=== PATIENT | male | born 1955 | race Caucasian/White ===

== ENCOUNTER 2023-07-23 11:49 | Emergency (ER) | payer MEDICARE, OTHER, SELFPAY ==
[2023-07-23 12:11] LABS: Urine Albumin 2+ (Neg - Trace); Urine Bilirubin 1+ (Negative); Urine Character Slightly Cloudy (Clear); Urine Color Brown; Urine Glucose Negative (Negative); Urine Ketone Trace (Negative); Urine Leukocyte Trace (Negative); Urine Nitrite Positive (Negative); Urine Occult Blood 4+ (Negative); Urine Urobilinogen 1+ (Neg - 1+)
[2023-07-23 12:15] LABS: % Basophils 0.4 % (0-2); % Eosinophils 1.5 % (0-6); % Immature Granulocytes 0.3 % (0-0.5); % Lymphocytes 16.3 % (20.5-51.1); % Monocytes 8.6 % (1.7-9.3); % Neutrophils 72.9 % (42.2-75.2); Absolute Eosinophils 0.1 10^3/uL (0-0.7); Absolute Lymphocytes 1.2 10^3/uL (1.2-3.4); Absolute Monocytes 0.7 10^3/uL (0.1-0.6); Absolute Neutrophils 5.5 10^3/uL (1.4-6.5); Hematocrit 43.9 % (39.0-52.0); Hemoglobin 14.2 g/dL (13.0-18.0); Mean Corp Hgb Conc. 32.3 g/dL (33.0-37.0); Mean Corpuscular Volume 92.8 fL (80.0-94.0); Mean Platelet Volume 10.3 fL (7.4-10.4); Nucleated Red Blood Cells % 0 % (-); Platelet Count 206 10^3/uL (130-400); Red Blood Cell Count 4.73 10^6/uL (4.70-6.10); Red Cell Dist. Width 12.3 % (11.5-14.5); White Blood Cell Count 7.6 10^3/uL (4.8-10.8)
[2023-07-23 12:40] LABS: ALT (SGPT) 44 U/L (0-50); AST (SGOT) 40 U/L (17-59); Albumin 4.2 g/dl (3.5-5.0); Alkaline Phosphatase 97 U/L (38-126); Blood Urea Nitrogen 13 mg/dl (9-20); Calcium 9.4 mg/dl (8.4-10.2); Carbon Dioxide 20 mmol/L (22-30); Chloride 111 mmol/L (98-107); Glucose 109 mg/dl (70-99); Potassium 4.2 mmol/L (3.5-5.1); Sodium 141 mmol/L (135-145); Total Bilirubin 1.1 mg/dl (0.2-1.3); Total Protein 6.7 g/dl (6.3-8.2); eGFR > 60.00
[2023-07-23 12:46] LABS: Urine Squamous Cell 0-2 /LPF (Few)
[2023-07-23 12:47] LABS: Urine Bacteria Many (Negative); Urine Red Blood Cell >100 /HPF (0-2)
--- NOTE | 2023-07-23 12:47 | ED.GENMED ---
History of Present Illness
General
Chief Complaint: Flank Pain
Source: patient
Exam Limitations: none
Time Seen by Provider: 07/23/23 12:23
Nursing documentation reviewed up to this point in time: agreed with
Travel History
Have you had any contact with someone who has COVID-19?: No
Do you have any symptoms of coronavirus? Fever > 100 degrees, chills, cough, shortness of breath, sore throat, loss of taste or smell, muscle aches, or headache?: No
History of Present Illness
History of Present Illness:
Patient is 67-year-old male with history of kidney stones presenting to the emergency department for evaluation of acute onset left flank pain. Symptoms initially started yesterday afternoon. Patient describes a sharp, relatively constant pain in
his left flank radiating down to his left groin. Patient reports onset of nausea and dry heaving earlier today due to pain. No associated fever, chills, chest pain, shortness of breath, or urinary symptoms. Patient states that the symptoms feel
exactly similar to kidney stones that he has had in the past.
Last kidney stone was many years ago. He has required surgical intervention for 1 kidney stone in the past
Patient does live in [place] but is up in [place] visiting his son.
Review of Systems
Review of Systems
Allergies reviewed?: Yes
All Other Systems: ROS reviewed and negative except as documented in HPI and ROS
Phy Exam
Physical Exam
Physical Exam:
Vitals: Patient's vital signs are stable. Afebrile
General: Patient is in moderate distress due to pain, no acute distress. Nontoxic-appearing
Skin: Warm and dry, no rashes or lesions
Head: Normocephalic, atraumatic
Eyes: Sclera nonicteric. EOMs intact. No nystagmus.
Throat: Protecting airway
Neck: Normal ROM, no cervical spine tenderness, no meningismus. Trachea midline
Cardiac: Regular rate and rhythm, no murmurs.
Pulm: Lungs clear bilaterally. Normal respiratory effort, no wheezes, rales, rhonchi heard on exam.
Abdomen: Abdomen soft. No abdominal tenderness without rebound tenderness or guard. Mild left CVA tenderness
Extremities: No evidence of cyanosis or edema. Good distal pulses
Neuro: AAOx3. CN II-XII intact. No focal neurologic deficits.
Psychiatric: Normal affect.
Course
Orders/Labs/Results
Orders:
Orders
07/23/23 12:01
Complete Blood Count/With Diff Urgent
Comprehensive Metabolic Panel Urgent
Urinalysis Reflex To Culture Urgent
Date Specimen was Collected: 07/23/23
Time Specimen was Collected: 11:57
Urine Microscopic Reflex Cult Urgent
Urine Culture Urgent
TO Source: U
Specimen Description:
Date Specimen was Collected: 07/23/23
Time Specimen was Collected: 11:57
07/23/23 12:39
0.9% Sodium Chloride 1000 ml [Nss] 1,000 ml IV BOLUS
Ketorolac [Toradol] 15 mg IV NOW STA
Morphine Sulfate 4 mg IV NOW STA
Ondansetron Injectable [Zofran] 4 mg IV NOW STA
07/23/23 12:40
CT Abd/pel Without Iv Or Oral Urgent
Comment:
Reason For Exam: left flank pain, hx kidney stones
07/23/23 14:35
Cephalexin Monohydrate [Keflex] 500 mg PO NOW STA
Abnormal Lab Results
07/23/23
12:01
MCHC 32.3 L g/dL
(33.0-37.0)
Absolute Monos (auto) 0.7 H 10^3/uL
(0.1-0.6)
Lymphocytes % 16.3 L %
(20.5-51.1)
Chloride 111 H mmol/L
(98-107)
Carbon Dioxide 20 L mmol/L
(22-30)
Glucose 109 H mg/dl
(70-99)
Urine Ketones Trace A
(Negative)
Ur Occult Blood Reflex 4+ A
(Negative)
Urine Nitrite (Reflex) Positive A
(Negative)
Urine Bilirubin 1+ A
(Negative)
Leukocyte Esterase Rfl Trace A
(Negative)
Urine RBC >100 A /HPF
(0-2)
Urine Bacteria (Reflex) Many A
(Negative)
Urine Albumin (Reflex) 2+ A
(Neg - Trace)
07/23/23 12:01
07/23/23 12:01
Vital Signs
Initial and Last Documented VS:
Initial Vital Signs
Temp Pulse Resp Pulse Ox
98.4 F 57 18 97
07/23/23 11:54 07/23/23 11:54 07/23/23 11:54 07/23/23 11:54
Last Documented Vital Signs
Temp Pulse Resp BP Pulse Ox
98.4 F 66 18 142/65 97
07/23/23 11:54 07/23/23 14:34 07/23/23 11:54 07/23/23 14:34 07/23/23 14:34
MDM/Problems Addressed
Differential Diagnosis Includes:
Not limited to: Kidney stone, pyelonephritis, UTI, diverticulitis
MDM/Problems Addressed:
67-year-old male presenting with acute onset left flank pain starting yesterday afternoon and worsening. Patient with past history of kidney stones stating this feels exactly the same. No fever, chills, abdominal pain. Vital signs stable. Exam
as above. Patient is nontoxic-appearing, although moderate uncomfortable due to pain. Lungs clear bilaterally. Heart regular rate and rhythm. Abdomen soft and nontender. Very mild left-sided CVA tenderness. No evidence of rashes or bruising.
History and exam consistent with likely kidney stone. Labs obtained in triage show signs of mild dehydration, otherwise no significant abnormalities. No evidence of renal insufficiency. White count normal. Urinalysis with many RBCs, few WBCs and
positive for nitrite very few squamous cells seen in urine suggesting unlikely to be contamination. Urine culture will be sent�although somewhat concerning for possible UTI. Will check CT abdomen/pelvis. Will give IVF, Zofran, morphine, Toradol,
and reassess.
Into reassess patient at bedside. Patient much more comfortable and states pain is significantly decreased following morphine.CT pending.
CT shows mild left hydronephrosis with a few 3 to 4 mm stones within the left bladder near the UVJ. No evidence of obstructing stone at this time. Patient does appear much more comfortable�I feel he is fit for trial of outpatient stone passage.
Given concern for possible UTI�will start patient on course of Keflex. First dose given in emergency department today. Will discharge patient with Flomax, pain management, as well. Instructions to strain urine and follow-up with urology has been
discussed with patient. Patient comfortable with plan. All questions answered.
Chronic conditions affecting care:
N/A
Acute Exacerbation and/or Progression of Chronic Illness:
N/A
*Radiology
Radiology exam reviewed: preliminary read by ED provider and radiology read reviewed
*Pulse Oximetry
Patient hypoxic: no
*EKG
Interpreted by ED Provider?: NA
*Pickling Solution Maker Interpretation
Rate: Pickling Solution Maker- N/A
*Critical Care Note
Total Time (30-74mins, 75-104mins- exclusive of procedures): Not Applicable
ED Attending Note
-
Portions of this chart may have been created with voice recognition software.� Occasional wrong word or��sound alike� substitutions may have occurred due to the inherent limitations of voice recognition software.
Discharge Plan
Departure
Patient Disposition: Home (Routine Discharge)
Date of Disposition: 07/23/23
Time of Disposition: 14:27
Patient with high blood pressure during this ER visit?: Yes
Condition: Good
Covid-19: Not Applicable
Discharge Problem:
Bladder stones
Instructions: Kidney Stones (DC), How to Strain Your Urine, BLOOD PRESSURE
Prescriptions:
New
tamsulosin [Flomax] 0.4 mg capsule
0.4 mg PO DAILY Qty: 14 0RF
cephalexin 500 mg capsule
500 mg PO QID 7 Days Qty: 28 0RF
oxycodone 5 mg tablet
5 mg PO Q8H PRN (Reason: Pain) Qty: 7 0RF
Referrals:
Antonio Isaac MD [Active] - As needed
NONE,* [Family Provider] -
Activity Restrictions/Additional Instructions:
RETURN TO THE EMERGENCY DEPARTMENT WITH ANY FEVERS, CHILLS, INTRACTABLE PAIN, SEVERE ABDOMINAL PAIN, INTRACTABLE NAUSEA/VOMITING, WORSENING IN CURRENT SYMPTOMS, OR ANY OTHER CONCERNS
-A few prescriptions have been sent to your pharmacy. You should take the antibiotic 4 times a day for the next week. You should take the tamsulosin daily for the next 2 weeks or until you pass stone. For pain management you should take ibuprofen
400 mg every 6-8 hours. A prescription for oxycodone has been sent to your pharmacy. You can take this up to every 8 hours as needed for severe, intractable pain - this will cause drowsiness and you should not take prior to driving.
-It is important stay well-hydrated. You should strain your urine.
-As discussed�it is importantly follow-up with urology. Number for urologist provided for you above. If you return to [place]�you should follow-up with the urologist in [place].
-Is important to monitor your symptoms closely and return to the emergency room if any signs of infection.
Interventions
Interventions:
*Risk Screen - Suicide Last Done: 07/23/23 11:56
*General Assessment Last Done: 07/23/23 11:56
*Neglect/Abuse Screening Last Done: 07/23/23 11:56
ED- Fall Risk Assessment Last Done: 07/23/23 15:50
*ED COVID-19 Vaccine History Last Done: 07/23/23 13:01
*Nursing Disposition Last Done: 07/23/23 15:50
KV-Reqnox-Kjgobvcqfe Assessment Last Done: 07/23/23 13:05
ED-Male Genitourinary Assessment Last Done: 07/23/23 13:05
Discharge Date and Time
Discharge Date/Time: 07/23/23 15:51
Print Language: MOSOTHO
[2023-07-23] MEDS: MORPHINE SULFATE 4 MG IV (12:56)
[2023-07-23] MEDS: TORADOL 15 MG IV (12:56)
[2023-07-23] MEDS: ZOFRAN 4 MG IV (12:56)
[2023-07-23] MEDS: NSS 1000 IV (12:57)
[2023-07-23 14:34] VITALS: BP 142/65
[2023-07-23] MEDS: KEFLEX 500 MG PO (15:09)
== END 2023-07-23 15:51 | disposition home or self-care (01) ==
LOC: EMR 11:49
PROVIDERS: Emergency Medicine; EMERGENCY PHYSICIAN Emergency Medicine
DX: N13.2 Hydronephrosis with renal and ureteral calculous obstruction (principal); N21.0 Calculus in bladder; Z87.442 Personal history of urinary calculi; Z98.84 Bariatric surgery status
CPT/HCPCS: 99284; 96374; 96375 ×2; 96361; 74176; 80053; 81003; 81015; 85025; 87086